=== PATIENT | female | born 1995 | race Caucasian/White ===

== ENCOUNTER 2017-09-08 00:15 | Emergency (ER) | payer BC ==
[2017-09-08 00:29] VITALS: BP 179/96
[2017-09-08] MEDS ORDERED: HYDROmorphone 1 MG/ML Syringe IVPUSH ONE (00:47)
[2017-09-08] MEDS ORDERED: Sodium Chloride 0.9% 1,000 ML IV ONE (00:48)
--- NOTE | 2017-09-08 01:01 | EDM.PDOC ---
ED HPI GENERAL MEDICAL PROBLEM - General Chief Complaint: Back Pain or Injury Stated Complaint: cramping/back pain Time Seen by Provider: 09/08/17 00:32 Source of Information: Reports: Patient History Limitations: Reports: No Limitations - History of Present Illness INITIAL COMMENTS - FREE TEXT/NARRATIVE: Patient presents with crampy low abdominal pain and low back pain that started about 30 hours ago and has been increasing but worse at night with lying down. She was in pain all day and spent most of the day in bed. She denies vomiting or diarrhea but has passed stool and gas okay today. She has been taking Ibuprofen and Flexeril at maximum doses the past 24 hours but no prescription pain meds; denies use of marijuana or other street drugs. Last dose of Ibuprofen 800 mg was 1.5 hours ago. She thinks she started her period when this cramping started but there wasn't much bleeding. Her cycles have always been unpredictable. She was using the Depo shot but stopped that a year ago. She isn't using any form of control but is sexually active. She denies any previous abdominal surgeries. Appetite has been okay. Treatments ASSEMBLER TRIM: Reports: NSAIDS, Other (see below) Other Treatments ASSEMBLER TRIM: flexeril, heat therapy Lower Posterior Abdomen Pain Score (Numeric/FACES): 7 - Related Data Allergies Allergy/AdvReac Type Severity Reaction Status Date / Time No Known Drug Allergies Allergy none Verified 09/08/17 00:29 Home Meds: Home Meds Cyclobenzaprine HCl 10 mg PO TID PRN 09/08/17 [History] FLUoxetine HCl [Fluoxetine HCl] 20 mg PO DAILY 09/08/17 [History] Ibuprofen 800 mg PO Q4H PRN 09/08/17 [History] Past Medical History HEENT History: Reports: Impaired Vision, Other (See Below) Other HEENT History: nystagmus Musculoskeletal History: Reports: Other (See Below) Other Musculoskeletal History: back pain off and on - Past Surgical History Musculoskeletal Surgical History: Reports: Arthroscopic Knee Social & Family History - Family History Musculoskeletal: Reports: Back pain, Chronic - Tobacco Use Smoking Status *Q: Current Every Day Smoker Years of Tobacco use: 0 Packs/Tins Daily: 0.5 Second Hand Smoke Exposure: No - Caffeine Use Caffeine Use: Reports: Soda - Recreational Drug Use Recreational Drug Use: No ED ROS GENERAL - Review of Systems Review Of Systems: See Below Constitutional: Denies: Fever, Chills, Weakness, Decreased Appetite HEENT: Reports: No Symptoms, Other (chronic nystagmus) Respiratory: Reports: No Symptoms. Denies: Shortness of Breath Cardiovascular: Reports: No Symptoms. Denies: Chest Pain, Syncope Endocrine: Reports: No Symptoms GI/Abdominal: Reports: Abdominal Pain. Denies: Bloody Stool, Constipation, Diarrhea, Decreased Appetite, Difficulty Swallowing, Nausea, Vomiting : Reports: Flank Pain (left). Denies: Discharge, Dysuria Musculoskeletal: Reports: No Symptoms Skin: Reports: No Symptoms. Denies: Cyanosis, Jaundice, Mottled, Pallor, Diaphoresis Neurological: Denies: Confusion, Dizziness, Headache, Seizure, Syncope, Weakness Psychiatric: Denies: Agitation, Confusion ED EXAM, GI/ABD - Physical Exam Exam: See Below Exam Limited By: No Limitations General Appearance: Alert, WD/WN, Mild Distress (with pain) Eyes: Bilateral: EOMI, Nystagmus Ears: Normal External Exam, Hearing Grossly Normal Nose: Normal Inspection, No Blood Throat/Mouth: Normal Inspection, Normal Lips, Normal Voice, No Airway Compromise Head: Atraumatic, Normocephalic Neck: Normal Inspection, Full Range of Motion Respiratory/Chest: No Respiratory Distress, Lungs Clear, Normal Breath Sounds, No Accessory Muscle Use Cardiovascular: Regular Rate, Rhythm, No Murmur, No Rub GI/Abdominal Exam: Normal Bowel Sounds, Other (mass or organomegaly palpated mid -abdomen to RLQ which is tender; RUQ also tender and left CVA; suprapubic region also tender; obese but not definitely distended; no rigidity) Back Exam: Full Range of Motion, CVA Tenderness (L), Paraspinal Tenderness ( right lumbar). No: CVA Tenderness (R) Extremities: Normal Inspection, Normal Range of Motion, Non-Tender Neurological: Alert, Oriented, Normal Cognition, No Motor/Sensory Deficits Psychiatric: Normal Mood, Anxious Skin Exam: Warm, Dry, Intact, Normal Color, No Rash Course - Vital Signs Last Recorded V/S: Last Vital Signs Temp 97.2 F 09/08/17 00:21 Pulse 86 09/08/17 00:21 Resp 22 H 09/08/17 00:21 BP 179/96 H 09/08/17 00:21 Pulse Ox 99 09/08/17 00:21 - Orders/Labs/Meds Orders: Active Orders 24 hr Category Date Time Status UA W/MICROSCOPIC [URIN] Stat Lab 09/08/17 00:47 Ordered Labs: Laboratory Tests 09/08/17 09/08/17 09/08/17 Range/Units 00:55 00:55 00:55 WBC 17.4 H (5.0-10.0) 10^3/uL RBC 4.73 (3.80-5.50) 10^6/uL Hgb 12.6 (12.0-16.0) g/dL Hct 38.1 (37.0-47.0) % MCV 80.5 L (82.0-92.0) fL MCH 26.6 L (27.0-31.0) pg MCHC 33.0 (32.0-36.0) g/dL RDW 13.5 (11.5-14.5) % Plt Count 464 H (150-300) 10^3/uL MPV 8.2 (7.4-10.4) fL Neut % (Auto) 78.8 H (50.0-70.0) % Lymph % (Auto) 14.7 L (20.0-40.0) % [place] % (Auto) 5.8 (2.0-8.0) % Eos % (Auto) 0.4 L (1.0-3.0) % Baso % (Auto) 0.3 (0.0-1.0) % Neut # (Auto) 13.6 H (2.5-7.0) 10^3/uL Lymph # (Auto) 2.6 (1.0-4.0) 10^3/uL [place] # (Auto) 1.0 H (0.1-0.8) 10^3/uL Eos # (Auto) 0.1 (0.1-0.3) 10^3/uL Baso # (Auto) 0.1 (0.0-0.1) 10^3/uL Sodium 137 (136-145) mmol/L Potassium 3.5 (3.3-5.3) mmol/L Chloride 106 (98-115) mmol/L Carbon Dioxide 19.6 L (21.0-32.0) mmol/L BUN 11 (6-25) mg/dL Creatinine 0.65 (0.51-1.17) mg/dL Est Cr Clr Drug Dosing 132.02 mL/min Estimated GFR (MDRD) > 60 mL/min Glucose 102 (70-110) mg/dL Calcium 9.4 (8.7-10.3) mg/dL Total Bilirubin 0.1 L (0.2-1.0) mg/dL AST 18 (15-37) U/L ALT 14 (12-78) U/L Alkaline Phosphatase 133 H (46-116) IU/L Total Protein 6.9 (6.4-8.2) g/dL Albumin 2.80 L (3.00-4.80) g/dL Lipase 156 (73-393) U/L HCG, Qual Positive H (NEGATIVE) HCG, Quant mIU/mL Specimen Type Urincc Urine Color Yellow (YELLOW) Urine Appearance Clear (CLEAR) Urine pH 7.0 (5.0-9.0) Ur Specific [place] 1.015 (1.005-1.030) Urine Protein Negative (NEGATIVE) mg/dL Urine Glucose (UA) Negative (NEGATIVE) mg/dL Urine Ketones Negative (NEGATIVE) mg/dL Urine Occult Blood Negative (NEGATIVE) Urine Nitrite Negative (NEGATIVE) Urine Bilirubin Negative (NEGATIVE) Urine Urobilinogen 0.2 (0.2-1.0) E.U./dL Ur Leukocyte Esterase Small H (NEGATIVE) Urine RBC 0-5 /HPF Urine WBC 5-10 H /HPF Ur Epithelial Cells Occasional /LPF Urine Bacteria Occasional (NONE TO FEW) /HPF 09/08/17 Range/Units 00:55 WBC (5.0-10.0) 10^3/uL RBC (3.80-5.50) 10^6/uL Hgb (12.0-16.0) g/dL Hct (37.0-47.0) % MCV (82.0-92.0) fL MCH (27.0-31.0) pg MCHC (32.0-36.0) g/dL RDW (11.5-14.5) % Plt Count (150-300) 10^3/uL MPV (7.4-10.4) fL Neut % (Auto) (50.0-70.0) % Lymph % (Auto) (20.0-40.0) % [place] % (Auto) (2.0-8.0) % Eos % (Auto) (1.0-3.0) % Baso % (Auto) (0.0-1.0) % Neut # (Auto) (2.5-7.0) 10^3/uL Lymph # (Auto) (1.0-4.0) 10^3/uL [place] # (Auto) (0.1-0.8) 10^3/uL Eos # (Auto) (0.1-0.3) 10^3/uL Baso # (Auto) (0.0-0.1) 10^3/uL Sodium (136-145) mmol/L Potassium (3.3-5.3) mmol/L Chloride (98-115) mmol/L Carbon Dioxide (21.0-32.0) mmol/L BUN (6-25) mg/dL Creatinine (0.51-1.17) mg/dL Est Cr Clr Drug Dosing mL/min Estimated GFR (MDRD) mL/min Glucose (70-110) mg/dL Calcium (8.7-10.3) mg/dL Total Bilirubin (0.2-1.0) mg/dL AST (15-37) U/L ALT (12-78) U/L Alkaline Phosphatase (46-116) IU/L Total Protein (6.4-8.2) g/dL Albumin (3.00-4.80) g/dL Lipase (73-393) U/L HCG, Qual (NEGATIVE) HCG, Quant [id number] mIU/mL Specimen Type Urine Color (YELLOW) Urine Appearance (CLEAR) Urine pH (5.0-9.0) Ur Specific [place] (1.005-1.030) Urine Protein (NEGATIVE) mg/dL Urine Glucose (UA) (NEGATIVE) mg/dL Urine Ketones (NEGATIVE) mg/dL Urine Occult Blood (NEGATIVE) Urine Nitrite (NEGATIVE) Urine Bilirubin (NEGATIVE) Urine Urobilinogen (0.2-1.0) E.U./dL Ur Leukocyte Esterase (NEGATIVE) Urine RBC /HPF Urine WBC /HPF Ur Epithelial Cells /LPF Urine Bacteria (NONE TO FEW) /HPF Meds: Medications Discontinued Medications Generic Name Dose Route Start Last Admin Trade Name Freq PRN Reason Stop Dose Admin Hydromorphone HCl 1 mg 09/08/17 00:47 09/08/17 01:03 Dilaudid IVPUSH 09/08/17 00:48 1 mg ONETIME ONE Administration Sodium Chloride 1,000 mls @ 999 mls/hr 09/08/17 00:48 09/08/17 01:02 Normal Saline IV 09/08/17 01:48 999 mls/hr .BOLUS ONE Administration - Re-Assessments/Exams Free Text/Narrative Re-Assessment/Exam: 09/08/17 02:10 test is positive so we ordered a quantitative HCG. Patient then tells me that her last sexual activity was Labor Day which puts her at or near full-term. We canceled the CT order and we don't have US. I did a cervical check which feels about fully dilated to me; we called in one of the nurses that has more OB experience to confirm cervical findings but in the mean time I called and discussed case with Dr. Lowe, OB at [facility] in [place]. She accepted patient for transfer and ambulance is called. Patient tells me that she thinks cramping/contractions were about 10 minutes apart. Patient is very surprised that she is as she had no clue through the and had taken the Plan B pill after the intercourse around Labor Day. Alex did a cervical check and estimates dilation at 8 cm. Patient and her mother are in disbelief and crying off and on. heart tones steady at 145-155 on monitor. Watched on monitor through one contraction before loading in ambulance and no decrease in HR during contraction. Still close to 10 minutes apart, however after patient was in the ambulance and Alex checked heart tones and contractions again she thinks two contractions came only 2 minutes apart. Otherwise patient has been stable and is now on her way to [place]. Departure - Departure Time of Disposition: 02:10 Disposition: DC/Tfer to Acute Hospital 02 Condition: Good Clinical Impression: Active labor at term - Discharge Information Forms: ED Department Discharge - My Orders Last 24 Hours: My Active Orders 09/08/17 00:47 UA W/MICROSCOPIC [URIN] Stat - Assessment/Plan Last 24 Hours: My Active Orders 09/08/17 00:47 UA W/MICROSCOPIC [URIN] Stat
[2017-09-08 01:29] LABS: CHLORIDE,CL 106 mmol/L (98-115); SODIUM,NA 137 mmol/L (136-145)
== END 2017-09-08 02:30 ==
LOC: KA.ED 00:15
DX: O99.89 Other specified diseases and conditions complicating pregnancy, childbirth and the puerperium (principal); O99.330 Smoking (tobacco) complicating pregnancy, unspecified trimester; F17.210 Nicotine dependence, cigarettes, uncomplicated; Z79.899 Other long term (current) drug therapy
CPT/HCPCS: 36415; 80053; 81001; 83690; 84702; 84703; 85025; 96361; 96374; 99285; J1170; J7030